=== PATIENT | female | born 1990 | race Two or more races ===

== ENCOUNTER 2019-05-22 21:33 | Emergency (ER) | payer OTHER ==
[~2019-05-22] VITALS: Ht 165.1 cm; Wt 59.0 kg
[2019-05-22 21:42] VITALS: BP 140/62
[2019-05-22] MEDS ORDERED: LIDOCAINE HCL/MPF 1% 30 ML VIAL IJ ONE (22:25)
--- NOTE | 2019-05-22 23:14 | NUR ---
PT REC'D SUTURES TO THE RT HAND MIDDLE FINGER. SPLINT AND DRSG APPLIED. WOUND CHECK IN 2 DAYS.
== END 2019-05-22 23:19 | disposition home or self-care (01) ==
LOC: ER 21:40
DX: S61.212A Laceration without foreign body of right middle finger without damage to nail, initial encounter (principal); G40.909 Epilepsy, unspecified, not intractable, without status epilepticus; I10 Essential (primary) hypertension; F41.9 Anxiety disorder, unspecified; W26.8XXA Contact with other sharp object(s), not elsewhere classified, initial encounter; Y93.89 Activity, other specified; Y92.89 Other specified places as the place of occurrence of the external cause; Y99.8 Other external cause status
CPT/HCPCS: 12001; 99283; A6403 ×2; J3490

== ENCOUNTER 2023-07-06 02:31 | Emergency (ER) | payer OTHER ==
[~2023-07-06] VITALS: Ht 165.1 cm; Wt 60.8 kg
[2023-07-06 02:49] VITALS: TEMP 98.3
[2023-07-06] MEDS ORDERED: LIDOCAINE 0.5% HCL 50 ML VIAL ONE (03:11)
[2023-07-06] MEDS ORDERED: LIDOCAINE 1% INJ 50 ML MDV IJ ONE (03:12)
[2023-07-06 03:31] LABS: BASOPHILS % (AUTO) 0.4 % (0.0-2.0); EOSINOPHILS # (AUTO) 0.1 K/uL (0.0-0.7); EOSINOPHILS % (AUTO) 1.2 % (0.0-6.0); HEMATOCRIT 42 % (33-45); HEMOGLOBIN 14.3 g/dL (11.5-14.8); LYMPHOCYTES # (AUTO) 3.1 K/uL (0.8-4.8); LYMPHOCYTES % (AUTO) 30.6 % (20.0-44.0); MEAN CORPUSCULAR HEMOGLOBIN 32 PG (26.0-33.0); MEAN CORPUSCULAR HGB CONC 34 g/dl (31.0-36.0); MEAN CORPUSCULAR VOLUME 94 fL (82-100); MONOCYTES # (AUTO) 0.6 K/uL (0.1-1.30); MONOCYTES % (AUTO) 5.8 % (2.0-12.0); NEUTROPHILS # (AUTO) 6.3 K/uL (1.8-8.9); PLATELET COUNT (AUTO) 254 K/uL (150-450); RED BLOOD CELL COUNT(AUTO) 4.46 MIL/uL (4.0-5.2); RED CELL DISTRIBUTION WIDTH 13.3 % (11.5-15.0); WHITE BLOOD COUNT (AUTO) 10.2 K/uL (4.3-11.0)
[2023-07-06 03:42] LABS: CALCIUM, SERUM 9.2 mg/dL (8.5-10.1); CARBON DIOXIDE 24 mmol/L (21-32); CHLORIDE 99 mmol/L (98-107); GLUCOSE 101 mg/dL (74-106); SODIUM SERUM 138 mmol/L (136-145); UREA NITROGEN, BLOOD 14 mg/dL (7-18)
[2023-07-06 03:55] LABS: ALANINE AMINOTRANSFERASE 24 U/L (12-78); ALBUMIN 4.1 g/dL (3.4-5.0); ALKALINE PHOSPHATASE 75 U/L (46-116); ASPARTATE AMINOTRANSFERASE 21 U/L (15-37); BILIRUBIN,DIRECT 0.2 mg/dL (0.0-0.2); BILIRUBIN,TOTAL 0.6 mg/dL (0.2-1.0); NT-PRO BNP 119 pg/mL (0-125); TOTAL PROTEIN, SERUM 8.1 g/dL (6.4-8.2)
[2023-07-06] MEDS ORDERED: AMOX/CLAVULANATE 875 MG TABLET ONE (04:07)
[2023-07-06] MEDS ORDERED: POTASSIUM CHLORIDE 20 MEQ POWDER PACKET ONE (04:07)
[2023-07-06] MEDS: POTASSIUM CHLORIDE 20 MEQ POWDER PACKET PO ONE (04:18)
[2023-07-06] MEDS: AMOX/CLAVULANATE 875 MG TABLET PO ONE (04:18)
[2023-07-06] MEDS ORDERED: AMOX-430 PO (05:23)
[2023-07-06 05:43] VITALS: BP 118/75; O2SAT 99
== END 2023-07-06 05:50 | disposition home or self-care (01) ==
LOC: ER 02:35
DX: S01.512A Laceration without foreign body of oral cavity, initial encounter (principal); S09.90XA Unspecified injury of head, initial encounter; R10.2 Pelvic and perineal pain; I10 Essential (primary) hypertension; F41.9 Anxiety disorder, unspecified; Z79.899 Other long term (current) drug therapy; W18.30XA Fall on same level, unspecified, initial encounter; Y93.89 Activity, other specified; Y92.89 Other specified places as the place of occurrence of the external cause; Y99.8 Other external cause status
CPT/HCPCS: 12011; 36415; 70450; 70486; 71045; 72125; 80048; 80076; 83880; 84484; 84702; 85025; 93005; 99284; J3490